=== PATIENT | female | born 1975 | race Caucasian/White ===

== ENCOUNTER 2016-12-10 03:18 | Emergency (ER) | payer SELFPAY ==
[2016-12-10 04:01] VITALS: TEMP 98; O2SAT 98
[2016-12-10] MEDS ORDERED: Tetanus/Diphtheria Toxoids 0.5 ml Syringe IM ONE ×2 (04:06→04:17)
[2016-12-10] MEDS ORDERED: Lidocaine 2% Inj (20ml) INFIL ONE (04:09)
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
[2016-12-10] MEDS ORDERED: Lidocaine 2% Inj (20ml) ONE (04:16)
[2016-12-10] MEDS ORDERED: Bacitracin 500 Units/gm Oint Foilpak UD ONE (04:32)
--- NOTE | 2016-12-10 06:30 | CT ---
EXAM: CT Maxillofacial Without Intravenous Contrast CLINICAL HISTORY: 41 years old, female; Pain; Face pain; Additional info: Injury TECHNIQUE: Axial computed tomography images of the face without intravenous contrast. This CT exam was performed using one or more of the following dose reduction techniques: automated exposure control, adjustment of the mA and/or kV according to patient size, and/or use of iterative reconstruction technique. Coronal and sagittal reformatted images were created and reviewed. EXAM DATE/TIME: 12/10/2016 4:09 AM COMPARISON: No relevant prior studies available. FINDINGS: There is no significant fluid in the sinuses or mastoid air cells. There is slight irregularity of the distal right nasal bone which could be either acute or chronic. There does not appear to be overlying soft tissue swelling favoring the latter, however clinical correlation is recommended. IMPRESSION: Slight cortical irregularity distal right nasal bone as discussed above.
[2016-12-10 06:43] VITALS: BP 120/70; PULSE 90; RESP 16
== END 2016-12-10 06:40 | disposition home or self-care (01) ==
LOC: C.ER 03:18
DX: S01.112A Laceration without foreign body of left eyelid and periocular area, initial encounter (principal); S05.12XA Contusion of eyeball and orbital tissues, left eye, initial encounter; Y04.0XXA Assault by unarmed brawl or fight, initial encounter

== ENCOUNTER 2018-08-04 12:48 | Emergency (ER) | payer SELFPAY ==
[2018-08-04 13:00] VITALS: BP 111/55; PULSE 85; RESP 18; TEMP 99.1; O2SAT 100
--- NOTE | 2018-08-04 13:01 | C.PDOC ---
History Of Present Illness 43 y/o female comes in complaining of an injury to her right 4th toe since yesterday. Patient states she tried to stand on her toes during exercise while barefoot. She also complains of some bruising and swelling to the right 4th toe and denies any other injuries. r 4 toe injury onset yest. PS TRIED TO STAND ON TOES DURING EXERCISE WHILE BAREFOOT. CO BRUISING, SWELL R 4 TOE NO OTHER INJ EXAM NAD EXT R FOOT +BRUISING R 4 TOE W MIN SWELL NO DEFORM; NAIL WNL SKIN INTACT GAIT WNL Time Seen by Provider: 08/04/18 12:59 Chief Complaint (Nursing): Lower Extremity Problem/Injury History Per: Patient History/Exam Limitations: no limitations Onset/Duration Of Symptoms: Days Current Symptoms Are (Timing): Still Present Past Medical History Reviewed: Historical Data, Nursing Documentation, Vital Signs Vital Signs: Last Vital Signs Temp 99.1 F 08/04/18 12:53 Pulse 85 08/04/18 12:53 Resp 18 08/04/18 12:53 BP 111/55 L 08/04/18 12:53 Pulse Ox 100 08/04/18 12:53 - Medical History PMH: No Chronic Diseases Family History: States: No Known Family Hx - Social History Hx Alcohol Use: Yes Hx Substance Use: No - Immunization History Hx Tetanus Toxoid Vaccination: Yes Hx Influenza Vaccination: Yes Hx Pneumococcal Vaccination: No Review Of Systems Except As Marked, All Systems Reviewed And Found Negative. Musculoskeletal: Positive for: Other (Pain, bruising, and swelling of right 4th toe) Physical Exam - Physical Exam Appears: Non-toxic, No Acute Distress Skin: Warm, Dry, Other (Intact) Head: Atraumatic, Normacephalic Eye(s): bilateral: Normal Inspection Oral Mucosa: Moist Neck: Supple Cardiovascular: Rhythm Regular, No Murmur Respiratory: Normal Breath Sounds, No Rales, No Rhonchi, No Wheezing Extremity: No Pedal Edema, No Deformity, Other (Positive ecchymosis to right 4th toe with minimal swelling; nail WNL) Extremity: Bilateral: Normal ROM Neurological/Psych: Oriented x3, Normal Speech, Normal Motor Gait: Other (WNL) ED Course And Treatment O2 Sat by Pulse Oximetry: 100 (RA) Pulse Ox Interpretation: Normal - Other Rad R 4 TOE X-Ray: Interpreted by Me (NEG) Foot XR X-Ray: Read By Radiologist Interpretation: FINDINGS: No acute fracture. Status post osteotomy 5th metatarsal. Joint spaces and articular surfaces are preserved. No lytic or blastic osseous lesion. No soft tissue abnormality appreciated. IMPRESSION: No acute fracture. Medical Decision Making Medical Decision Making: Plan: --Right Foot XR Disposition Counseled Patient/Family Regarding: Studies Performed, Diagnosis, Need For Followup - Disposition Referrals: Vonda Canchola DPM [Staff Provider] - Disposition: HOME/ ROUTINE Disposition Time: 13:30 Condition: GOOD Instructions: Toe Injury (DC) Forms: [employer] (Greenlandic), Work Excuse - Clinical Impression Clinical Impression: Toe contusion - Scribe Statement The provider has reviewed the documentation as recorded by the Keyanaibperla Godinez Provider Attestation: All medical record entries made by the Scribe were at my direction and personally dictated by me. I have reviewed the chart and agree that the record accurately reflects my personal performance of the history, physical exam, medical decision making, and the department course for this patient. I have also personally directed, reviewed, and agree with the discharge instructions and disposition. Orthopedic Care Application Of:: Toe-brian tape
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
== END 2018-08-04 13:50 | disposition home or self-care (01) ==
LOC: C.ER 12:48
DX: S90.121A Contusion of right lesser toe(s) without damage to nail, initial encounter (principal); X58.XXXA Exposure to other specified factors, initial encounter